=== PATIENT | female | born 1985 | race Two or more races ===

== ENCOUNTER 2016-06-11 09:57 | Emergency (ER) | payer MEDICAID ==
[~2016-06-11] VITALS: Wt 73.0 kg
[~2016-06-11 09:57] MED LIST: PREN1TAB49 PO
[2016-06-11] MEDS ORDERED: ACETAMINOPHEN 500 MG TAB PO STA (10:45)
[2016-06-11] MEDS ORDERED: TYL500 PO (10:47)
[2016-06-11] MEDS ORDERED: NAPR-260 PO (10:48)
[2016-06-11] MEDS ORDERED: LOPE2CAP PO (10:48)
[2016-06-11] MEDS ORDERED: OSLT75C PO (10:49)
--- NOTE | 2016-06-11 11:10 | ERD ---
ER Documentation Chief Complaint Date/Time DATE: 06/11/16 TIME: 10:57 Chief Complaint FEVER X 2 DAYS HPI This is a 31-year-old female that presents to the ER with a fever that started yesterday. Patient also complaining of a headache, sore throat and watery nonbloody diarrhea. She admits to nausea however denies vomiting. Patient states that she had 6 bouts of diarrhea yesterday and 2 episodes today. She denies any recent travel or eating anything different. She does not have a cough. She denies any urinary frequency or dysuria. ROS 12 point review of systems was done, all negative except per HPI. Medications Home Meds Active Scripts Oseltamivir Phosphate* (Tamiflu*) 75 Mg Capsule, 75 MG PO BID for 5 Days, CAP Prov:JOSE VEE 06/11/16 Naproxen* (Naprosyn*) 500 Mg Tablet, 500 MG PO BID Y for PAIN AND/OR INFLAMMATION, #30 TAB Prov:JOSE VEE 06/11/16 Loperamide Hcl* (Imodium*) 2 Mg Capsule, 2 MG PO .WITH EACH DIARRHEA Y for DIARRHEA for 3 Days, CAP MAX 16 mg/day Prov:JOSE VEE 06/11/16 Acetaminophen* (Tylenol*) 500 Mg Tab, 500 MG PO Q4H Y for MILD PAIN LEVEL 1-3 for 3 Days, TAB Prov:JOSE VEE 06/11/16 Reported Medications Vits W-Ca,Fe,Fa(<1MG) () 1 Tab Tablet, 1 PO 10/20/10 [None] No Conflict Check 09/02/09 Allergies Allergies: Coded Allergies: No Known Allergy (Verified Allergy, Unknown, 09/02/09) No Known Drug Allergies (Verified Allergy, 10/20/10) PMhx/Soc History of Surgery: No Anesthesia Reaction: No Hx Neurological Disorder: No Hx Respiratory Disorders: No Hx Cardiac Disorders: No Hx Psychiatric Problems: No Hx Miscellaneous Medical Probl: No Hx Alcohol Use: No Hx Substance Use: No Hx Tobacco Use: No Physical Exam Vitals Vital Signs Date Time Temp Pulse Resp B/P Pulse Ox O2 Delivery O2 Flow Rate FiO2 06/11/16 10:03 100.4 115 18 125/74 99 Physical Exam GENERAL: The patient is well-developed, well-nourished, in no acute distress. NECK: Cervical spine is non tender with no step off. Supple, no nuchal rigidity HEENT: Atraumatic. Pupils equal, round and reactive to light. Extraocular muscles are grossly intact. Conjunctivae pink, no discharge. Bilateral tympanic membranes are clear with no evidence of erythema, effusion or dulling of the light reflex. Tonsilar erythema with no exudates or uvular deviation. Clear rhinorrhea. RESPIRATORY: Clear to auscultation bilaterally. There are no rales, wheezes or rhonchi. HEART: Regular rate and rhythm. No murmurs, clicks, rubs or gallops. NEUROLOGIC: Alert and oriented. SKIN: There is no rash. The skin is warm and dry. Results 24 hrs Current Medications Medications (Trade) Dose Ordered Sig/Krista Route PRN Reason Start Time Stop Time Status Last Admin Dose Admin Acetaminophen (Tylenol Tab) 1,000 mg ONCE STAT PO 06/11/16 10:45 06/11/16 10:46 DC Procedures/MDM This is a 31-year-old female presents to the ER with sore throat, headache, fever, diarrhea. This is likely viral in etiology. At this time suspicion for acute abdomen is low, patient has denied any abdominal pain and her abdominal exam is completely benign. There is no evidence of strep throat or any other arterial respiratory infection. This patient for meningitis or sepsis is low. His fever was controlled here in the ER. She does not appear dehydrated she is able to tolerate p.o. fluids. She did not receive an influenza shot patient may have the influenza virus. She will begin Tamiflu prophylactically as it has only been going on for the last 24 hours. Patient needs to follow-up with her primary care doctor within 1-2 days or return to ER sooner if symptoms worsen. My medical decision making shared with the patient she understands and agrees with plan. Departure Diagnosis: Primary Impression: Febrile illness Condition: Stable Patient Instructions: Treating Diarrhea, Febrile Illness, Uncertain Cause ( Adult) Additional Instructions: Llame al doctor CARMELINA y kayden veena GER PARA DENTRO DE 1-2 TOBIAS.Dgale a la secretaria que nosotros le instruimos hacer esta ger.Avise o llame si casey condicin se empeora antes de la ger. Regresa aqui si peor o no mejor. NANDA,JOSE C Jun 11, 2016 11:10
== END 2016-06-11 12:25 | disposition home or self-care (01) ==
LOC: FTE 09:57
DX: R50.9 Fever, unspecified (principal)
CPT/HCPCS: Z7502; Z7610; 99283

== ENCOUNTER 2016-07-22 04:32 | Emergency (ER) | payer MEDICAID ==
[~2016-07-22] VITALS: Ht 162.6 cm; Wt 74.5 kg
[~2016-07-22 04:32] MED LIST changes: +LOPE2CAP PO; +NAPR-260 PO; +OSLT75C PO; +TYL500 PO
[2016-07-22 04:35] VITALS: Ht 162.6 cm; Wt 74.5 kg
[2016-07-22] MEDS ORDERED: FLUT9.9S NASAL (04:53)
[2016-07-22] MEDS ORDERED: ALBU8.5H3 INH (04:53)
[2016-07-22] MEDS ORDERED: GUAI120S26 PO (04:53)
[2016-07-22] MEDS ORDERED: IBUP-1542 PO (04:53)
[2016-07-22] MEDS ORDERED: CETI10CA PO (04:53)
--- NOTE | 2016-08-02 18:20 | ERD ---
ER Documentation Chief Complaint Date/Time DATE: 08/02/16 TIME: 18:18 Chief Complaint cough x 4 days,sore throat HPI 31-year-old female presents here in emergency department for complaints of cough , sore throat on and off fever for 4 days. Patient has been having dry cough, does not cough up any phlegm or blood. Patient does not have any shortness breath or wheezing. Patient has been having runny nose nasal congestion with clear nasal discharge. Patient does not have any sick contacts. Patient did not take any medications of symptoms. ROS All systems reviewed and are negative except as per history of present illness. Medications Home Meds Active Scripts Ibuprofen* (Motrin*) 600 Mg Tab, 600 MG PO Q6H Y for PAIN AND OR ELEVATED TEMP, #30 TAB Prov:ASHISH WYATT NP 07/22/16 Cetirizine Hcl* (Zyrtec*) 10 Mg Capsule, 10 MG PO DAILY, #30 TAB.CHEW Prov:ASHISH WYATT NP 07/22/16 Vrygplhgrxb-A-Mftededfue Hb* (Guaifenesin* DM Syrup) 120 Ml Syrup, 10 ML PO Q4H Y for COUGH, #120 ML Prov:ASHISH WYATT NP 07/22/16 Albuterol Sulfate* (Proair HFA*) 8.5 Gm Hfa.aer.ad, 2 PUFF INH Q4H Y for WHEEZING AND SOB, #1 INHALER Prov:ASHISH WYATT NP 07/22/16 Fluticasone Propionate (Flonase Allergy Relief) 9.9 Ml [place].susp, 1 SPRAY NASAL BID, #1 BOTTLE TO EACH NOSTRIL Prov:ASHISH WYATT NP 07/22/16 Oseltamivir Phosphate* (Tamiflu*) 75 Mg Capsule, 75 MG PO BID for 5 Days, CAP Prov:JOSE VEE 06/11/16 Naproxen* (Naprosyn*) 500 Mg Tablet, 500 MG PO BID Y for PAIN AND/OR INFLAMMATION, #30 TAB Prov:JOSE VEE 06/11/16 Loperamide Hcl* (Imodium*) 2 Mg Capsule, 2 MG PO .WITH EACH DIARRHEA Y for DIARRHEA for 3 Days, CAP MAX 16 mg/day Prov:JOSE VEE 06/11/16 Acetaminophen* (Tylenol*) 500 Mg Tab, 500 MG PO Q4H Y for MILD PAIN LEVEL 1-3 for 3 Days, TAB Prov:JOSE VEE 06/11/16 Reported Medications Vits W-Ca,Fe,Fa(<1MG) () 1 Tab Tablet, 1 PO 10/20/10 [None] No Conflict Check 09/02/09 Allergies Allergies: Coded Allergies: No Known Allergy (Verified Allergy, Unknown, 09/02/09) No Known Drug Allergies (Verified Allergy, 10/20/10) PMhx/Soc Medical and Surgical Hx: pt denies Medical Hx, pt denies Surgical Hx History of Surgery: No Anesthesia Reaction: No Hx Neurological Disorder: No Hx Respiratory Disorders: No Hx Cardiac Disorders: No Hx Psychiatric Problems: No Hx Miscellaneous Medical Probl: No Hx Alcohol Use: No Hx Substance Use: No Hx Tobacco Use: No Smoking Status: Never smoker FmHx Family History: No coronary disease, No diabetes, No other Physical Exam Physical Exam GENERAL: The patient is well developed and appropriate for usual state of health, in no apparent distress. HEENT: Atraumatic. Ears: Normal tympanic membrane, no erythema or bulging. No ear canal swelling. No ear discharge. Nose: Erythematous nasal turbinates with clear nasal that she. Throat: oropharynx erythematous with postnasal drip. No tonsillar swelling or tonsillar exudates. No lymphadenopathy. CHEST: Clear to auscultation bilaterally. There are no rales, wheezes or rhonchi. HEART: Regular rate and rhythm. No murmurs, clicks, rubs or gallops. No S3 or S4. ABDOMEN: Soft, nontender and nondistended. Good bowel sounds. No rebound or guarding. No gross peritonitis. No gross organomegaly or masses. No Aguilar sign or McBurney point tenderness. BACK: No midline or flank tenderness. EXTREMITIES: Equal pulses bilaterally. There is no peripheral clubbing, cyanosis or edema. No focal swelling or erythema. Full range of motion. Grossly neurovascularly intact. NEURO: Alert and oriented. Cranial nerves 2-12 intact. Motor strength in all 4 extremities with 5/5 strength. Sensation grossly intact. Normal speech and gait. SKIN: There is no apparent rash or petechia. The skin is warm and dry. HEMATOLOGIC AND LYMPHATIC: There is no evidence of excessive bruising or lymphedema. No gross cervical, axillary, or inguinal lymphadenopathy. Procedures/MDM Medical Decision Making: Patient symptoms are most likely consistent with acute bronchitis, which viral in origin. There is low suspicion for Pneumonia at this time since patients lungs sounds are clear, patient O2 saturation is normal and patient doesnt show any respiratory distress. Radiology exams are indicated at this time. There is low suspicion for other cardiopulmonary emergencies at this time such as CHF, Pulmonary Embolism, Pneumothorax, Aortic Aneurysm or any other cardiopulmonary emergencies at this time. There is low suspicion for sepsis. Patient appears well and is hemodynamically stable. Fever is controlled with medicines. Disposition: Home. Condition: Stable Prescriptions: Guaifenesin DM Zyrtec ibuprofen albuterol Zyrtec Instructions: Patient is advised to take medications as prescribed. Patient is advised to rest. Patient advised to increase fluid intake, do humidifier at home and if possible, do salt water gargles. Patient is advised that if symptoms are worse, shortness of breath, uncontrolled fever, stridor, vomiting, worst signs and symptoms to return to emergency department immediately. Otherwise, patient is advised to follow up with primary doctor in 5-7 days. Departure Diagnosis: Primary Impression: Acute bronchitis Bronchitis organism: unspecified organism Qualified Code: J20.9 - Acute bronchitis, unspecified organism Condition: Stable Patient Instructions: Bronchitis, No Antibiotic (Adult) ASHISH WYATT NP August 02, 2016 18:20
== END 2016-07-22 05:05 | disposition home or self-care (01) ==
LOC: FTE 04:32
DX: J20.9 Acute bronchitis, unspecified (principal)
CPT/HCPCS: 99283

== ENCOUNTER 2017-03-10 15:51 | Emergency (ER) | END 2017-03-10 17:30 | disposition left against medical advice (07) ==